=== PATIENT | male | born 1985 | race Caucasian/White ===

== ENCOUNTER 2020-11-19 01:56 | Emergency (ER) | payer SELFPAY ==
[~2020-11-19] VITALS: Ht 172.7 cm; Wt 71.0 kg
[2020-11-19] MEDS ORDERED: ACETAMINOPHEN 325MG TABLET PO ONE (02:30)
[2020-11-19] MEDS ORDERED: SODIUM CHLORIDE 0.9% 1,000 ML IV ONE (03:00)
[2020-11-19] MEDS ORDERED: KETAMINE HCL 50 MG/ML 10ML IM ONE (03:00)
[2020-11-19] MEDS ORDERED: ONDANSETRON HCL 4MG/2ML INJ IV ONE (03:00)
[2020-11-19] MEDS ORDERED: IBUP-2029 MT (05:55)
[2020-11-19 07:29] VITALS: BP 132/87
== END 2020-11-19 07:29 | disposition home or self-care (01) ==
LOC: ER 01:56
DX: R51.9 Headache, unspecified (principal); M25.522 Pain in left elbow; F17.200 Nicotine dependence, unspecified, uncomplicated; Z91.19 Patient's noncompliance with other medical treatment and regimen
CPT/HCPCS: 70450; 73080; 96361; 96374; 99285; J2405; J3490; Z7610